=== PATIENT | male | born 1945 | race Caucasian/White ===

== ENCOUNTER 2024-10-12 12:30 | Emergency (ER) | payer SELFPAY ==
[2024-10-12 12:32] VITALS: BP 170/80
[2024-10-12 12:54] LABS: % Immature Granulocytes 0.3 % (0-0.5); % Lymphocytes 22.3 % (20.5-51.1); % Monocytes 8.3 % (1.7-9.3); % Neutrophils 67.1 % (42.2-75.2); Absolute Basophils 0.1 10^3/uL (0-0.2); Absolute Eosinophils 0.1 10^3/uL (0-0.7); Absolute Lymphocytes 1.3 10^3/uL (1.2-3.4); Absolute Monocytes 0.5 10^3/uL (0.1-0.6); Absolute Neutrophils 3.9 10^3/uL (1.4-6.5); Hematocrit 48.2 % (39.0-52.0); Mean Corp Hgb Conc. 35.3 g/dL (33.0-37.0); Mean Corpuscular Hgb 31.3 pg (27.0-31.0); Mean Corpuscular Volume 88.8 fL (80.0-94.0); Mean Platelet Volume 9.7 fL (7.4-10.4); Nucleated Red Blood Cells % 0 % (-); Platelet Count 169 10^3/uL (130-400); Red Blood Cell Count 5.43 10^6/uL (4.70-6.10); White Blood Cell Count 5.8 10^3/uL (4.8-10.8)
[2024-10-12 13:07] LABS: ALT (SGPT) 40 U/L (0-50); AST (SGOT) 25 U/L (17-59); Albumin 4.8 g/dl (3.5-5.0); Alkaline Phosphatase 81 U/L (38-126); Blood Urea Nitrogen 14 mg/dl (9-20); Calcium 9.6 mg/dl (8.4-10.2); Carbon Dioxide 25 mmol/L (22-30); Chloride 106 mmol/L (98-107); Glucose 99 mg/dl (70-99); Potassium 4.6 mmol/L (3.5-5.1); Sodium 139 mmol/L (135-145); Total Bilirubin 0.7 mg/dl (0.2-1.3); Total Protein 7.5 g/dl (6.3-8.2); eGFR > 60.00
[2024-10-12 14:00] VITALS: BP 145/81; BMI 27.4
--- NOTE | 2024-10-12 14:11 | ED.GENMED ---
History of Present Illness
General
Chief Complaint: Skin Problem
Source: patient
Exam Limitations: none
Time Seen by Provider: 10/12/24 13:59
History of Present Illness
History of Present Illness:
79yoM with a history of hyperlipidemia presenting for evaluation of a neck wound. Symptoms started 2 weeks ago. He woke up with a wound to his anterior neck which he assumed was an insect bite. He does not recall a specific incident. He went to
urgent care initially and was started on doxycycline. He took this for 8 days without improvement so went back to urgent care last week and was prescribed clindamycin. He has been on this for about 5 days. He is here with persistent symptoms.
The symptoms are not worsening but they are staying the same. The wound is itchy but not painful. He has been applying hydrogen peroxide to the wound. He denies any drainage, fevers, or chills.
Phy Exam
General Physical Exam
General Presentation: well appearing and no apparent distress
General Skin: warm and dry
General Habitus: normal
General Mental: alert
ENT Exam
ENT Exam: normocephalic and other (Scab noted on L anterior neck above clavicle. Area is non-tender without drainage or palpable fluctuance. Mild skin irritation surrounding the scab without overt signs of cellulitis.)
Pulmonary Exam
Pulmonary Exam: no respiratory distress
Neurological Exam
Neurological Exam: alert
Katelyn Coma Scale
Eye Opening: Spontaneous
Verbal Response: Oriented
Motor Response: Obeys Commands
GCS Total Score: 15
Skin Exam
Skin Exam: warm/dry
Psychiatric Exam
Psychiatric Exam: normal mood/affect
Course
Orders/Labs/Results
Orders:
Orders
10/12/24 12:42
CMP [Comprehensive Metabolic Panel] Urgent
Complete Blood Count/With Diff Urgent
Abnormal Lab Results
10/12/24
12:42
MCH 31.3 H pg
(27.0-31.0)
10/12/24 12:42
10/12/24 12:42
Vital Signs
Initial and Last Documented VS:
Initial Vital Signs
Temp Pulse Resp BP Pulse Ox
98.1 F 75 18 170/80 95
10/12/24 12:32 10/12/24 12:32 10/12/24 12:32 10/12/24 12:32 10/12/24 12:32
Last Documented Vital Signs
Temp Pulse Resp BP Pulse Ox
98.2 F 89 20 145/81 99
10/12/24 14:00 10/12/24 14:00 10/12/24 14:00 10/12/24 14:00 10/12/24 14:00
MDM/Problems Addressed
Differential Diagnosis Includes:
79yoM here with a neck wound x 2 weeks. Believes he was bitten by an insect. Now on his 2nd round of abx. Symptoms are not worsening but are not getting better. He denies any f/c or systemic symptoms and he is afebrile roberto rrival. He is well
appearing in no distress. There is a scab noted to the L anterior neck on exam with some surrounding skin irritation. No overt signs of cellulitis noted. No fluctuance, drainage, or evidence of underlying abscess.
Labs obtained in triage and white count is normal. Do not feel further antibiotics are warranted. He was advised to finish the course of clindamycin that he is currently taking and f/u with his PCP in 2-3 days for wound recheck. ED return
precautions reviewed. Patient discharged in stable condition.
*Pulse Oximetry
Patient hypoxic: no (99%)
*Critical Care Note
Total Time (30-74mins, 75-104mins- exclusive of procedures): Not Applicable
ED Attending Note
-
Portions of this chart may have been created with voice recognition software.� Occasional wrong word or��sound alike� substitutions may have occurred due to the inherent limitations of voice recognition software.
Discharge Plan
Departure
Patient Disposition: Home (Routine Discharge)
Date of Disposition: 10/12/24
Time of Disposition: 14:19
Patient with high blood pressure during this ER visit?: Yes
Discharge Problem:
Open wound of neck
Instructions: Wound Care (DC)
Activity Restrictions/Additional Instructions:
Finish the antibiotic you are currently taking. Leave wound alone to allow for healing.
Please follow-up with your family doctor in 2-3 days for wound recheck. Return to the ER with any worsening symptoms, fevers, or chills.
Interventions
Interventions:
*Risk Screen - Suicide Last Done: 10/12/24 12:32
*General Assessment Last Done: 10/12/24 12:32
*Neglect/Abuse Screening Last Done: 10/12/24 12:32
*ED- Fall Risk Assessment Last Done: 10/12/24 14:00
*ED COVID-19 Vaccine History Last Done: 10/12/24 14:00
*Nursing Disposition Last Done: 10/12/24 14:48
ED-Skin Assessment Last Done: 10/12/24 14:00
Discharge Date and Time
Discharge Date/Time: 10/12/24 14:50
Print Language: [place]
== END 2024-10-12 14:50 | disposition home or self-care (01) ==
LOC: EMR 12:30
PROVIDERS: Emergency Medicine; EMERGENCY PHYSICIAN Emergency Medicine; FAMILY PHYSICIAN Nurse Practitioner Family
DX: S10.86XA Insect bite of other specified part of neck, initial encounter (principal); W57.XXXA Bitten or stung by nonvenomous insect and other nonvenomous arthropods, initial encounter; E78.5 Hyperlipidemia, unspecified
CPT/HCPCS: 99283; 80053; 85025